=== PATIENT | male | born 1955 | race Caucasian/White ===

== ENCOUNTER → 2020-11-09 03:03 | Outpatient (CLI) | payer OTHER, SELFPAY ==
[2020-11-09 18:36] LABS: SARS-CoV-2 RNA PCR Negative
== END ==
PROVIDERS: PCP Student in an Organized Health Care Education/Training Program; Visit Provider Student in an Organized Health Care Education/Training Program
DX: R68.89 Other general symptoms and signs (principal); Z20.822 Contact with and (suspected) exposure to COVID-19
CPT/HCPCS: C9803; U0003; U0005

== ENCOUNTER → 2021-03-11 12:37 | Outpatient (CLI) | payer OTHER, SELFPAY ==
--- NOTE | ~2021-03-11 | XR_ITS ---
EXAMINATION: XR foot RT standing 2V EXAM DATE: 03/11/2021 13:06 INDICATION: Hallux limitus of right foot. TECHNIQUE: Frontal and lateral projections of the right foot standing. Correlation is made to contra lateral foot same date. FINDINGS: Tiny right calcaneal spur inferiorly. There is mild 1st metatarsophalangeal primary osteoa rthritis. Mild pes planus. There are no bony erosions identified. There are no acute fractures or di slocations identified. There is no subcutaneous gas. The soft tissue is unremarkable. There are n o radiopaque foreign bodies. IMPRESSION: 1. Mild right pes planus. 2. Mild degenerative changes. Reviewed, dictated and finalized at location G. ENT SEWING MACHINE OPERATOR
--- NOTE | ~2021-03-11 | XR_ITS ---
EXAMINATION: XR foot LT standing 2V EXAM DATE: 03/11/2021 13:06 INDICATION: Bilateral foot pain. Left more than right. TECHNIQUE: Frontal and lateral projections of the left foot standing. Correlation is made to contral [facility] foot same date. FINDINGS: There is moderate left 1st metatarsophalangeal joint primary osteoarthritis. There is buni on. Mild pes planus. There are no bony erosions identified. There are no acute fractures or dislocati ons identified. There is no subcutaneous gas. The soft tissue is unremarkable. There are no radio paque foreign bodies. IMPRESSION: 1. Moderate left 1st MTP osteoarthritis. 2. Mild pes planus. 3. Bunion. Reviewed, dictated and finalized at location G. EL TECHNICIAN MECHANIC
== END ==
PROVIDERS: PCP Student in an Organized Health Care Education/Training Program
DX: M19.072 Primary osteoarthritis, left ankle and foot (principal); M21.42 Flat foot [pes planus] (acquired), left foot; M21.41 Flat foot [pes planus] (acquired), right foot; M21.612 Bunion of left foot
CPT/HCPCS: 73620

== ENCOUNTER 2022-11-05 10:55 | Outpatient (CLI) | payer OTHER, SELFPAY ==
--- NOTE | ~2022-11-05 | CT_ITS ---
EXAMINATION: CT abdomen pelvis wo con DATE: 11/05/2022 11:26 INDICATION: Gross hematuria. Nephrolithiasis. TECHNIQUE: Computed tomography (CT) of the abdomen and pelvis was performed without intravenous contr ast. Automated exposure control and iterative reconstruction technique were employed. The dose-length product was 548.37 mGy-cm. COMPARISON: 03/14/2015 FINDINGS: Chronic noncalcified pleural plaque at the posterior right lower lobe. Calcified nodule in the right upper lobe along with calcified right hilar lymph nodes consistent with old granulomatous disease. He art size is normal. No pericardial effusion. Ascending thoracic aortic aneurysm measuring up to 4.4 x 4.3 cm. Liver, gallbladder, pancreas and bilateral adrenal glands are normal. Additional splenic roxana cifications consistent with old granulomatous disease. 1.4 cm low-attenuation cyst at the lower pole of the left kidney. Interval increase in size of a now 3.2 cm exophytic lesion arising from the poste rior interpolar region of the right kidney with greater than simple fluid attenuation. There is incre ased T1 signal on MRI dated 05/18/2014 consistent with a proteinaceous/hemorrhagic cyst. 5 mm nonobstru cting stone at the right ureteropelvic junction with no hydronephrosis. Bilateral ureters are normal in caliber with no additional urolithiasis. There is moderate sigmoid predominant diverticulosis with out adjacent inflammatory change to suggest diverticulitis. Small bowel and appendix are normal. Blad ya is normal. Prostatomegaly. No free intraperitoneal gas or fluid. No pathologically enlarged abdom inal or pelvic lymphadenopathy. L4-S1 anterior spinal fusion with associated fixation devices. Modera te spondylosis in the more cephalad lumbar and lower thoracic spine. Mild osteitis pubis. IMPRESSION: 1. 5 mm nonobstructing stone at the right ureteropelvic junction. 2. 3.2 cm exophytic right renal lesion with greater than simple fluid attenuation. The lesion demonst rating increased T1 signal on a prior number spine MRI most consistent with a proteinaceous/hemorrhag ic cyst but could consider further evaluation with pre and postcontrast CT or MRI for more definitive determination. 3. Diverticulosis. 4. Prostatomegaly. 5. 4.4 cm ascending thoracic aortic aneurysm. Reviewed, dictated and finalized at location A. IMPRESSION: 1. 5 mm nonobstructing stone at the right ureteropelvic junction. 2. 3.2 cm exophytic right renal lesion with greater than simple fluid attenuati on. The lesion demonstrating increased T1 signal on a prior number spine MRI mo st consistent with a proteinaceous/hemorrhagic cyst but could consider further evaluation with pre and postcontrast CT or MRI for more definitive determinatio n. 3. Diverticulosis. 4. Prostatomegaly. 5. 4.4 cm ascending thoracic aortic aneurysm.
== END 2022-11-05 10:56 | disposition home or self-care (01) ==
LOC: ANHIMG 11:02
PROVIDERS: PCP Student in an Organized Health Care Education/Training Program; Visit Provider Student in an Organized Health Care Education/Training Program
DX: R31.0 Gross hematuria (principal); N18.31 Chronic kidney disease, stage 3a; N20.0 Calculus of kidney; K57.30 Diverticulosis of large intestine without perforation or abscess without bleeding; I71.20 Thoracic aortic aneurysm, without rupture, unspecified
CPT/HCPCS: 74176

== ENCOUNTER 2022-12-02 08:29 | Outpatient (CLI) | payer OTHER, SELFPAY ==
--- NOTE | ~2022-12-02 | MR_ITS ---
EXAMINATION: MR abdomen wo/w con DATE: 12/02/2022 09:38 INDICATION: Right renal cyst with gross hematuria. TECHNIQUE: Magnetic resonance imaging (MRI) of the abdomen was performed without intravenous contrast . Sequences included coronal T2-weighted SS-FSE, coronal and axial FS 2D-FIESTA, axial STIR FSE, axi al T2-weighted SS-FSE, axial T2-weighted FS SS-FSE, axial diffusion-weighted SE, axial dual-echo T1-w eighted FSPGR, and axial and coronal T1-weighted LAVA. Postcontrast axial T1-weighted LAVA images wer e obtained in a time course. Postcontrast coronal T1-weighted LAVA images were obtained. COMPARISON: CT dated 11/05/2022 FINDINGS: Heart size is normal. No pericardial or pleural effusion. Again seen is nodular pleural thickening at the posterior aspect of the right lower lobe which appears unchanged since CT dated 03/14/2015 and giv en the absence of appreciable contrast enhancement would favor a pleural plaque over schwannoma or pe ripheral nerve sheath tumor. Liver, gallbladder, spleen, pancreas and bilateral adrenal glands are no rmal. Typical appearing 1.8 cm T2 hyperintense nonenhancing cyst at the lower pole of the left kidney . 3.5 cm complex exophytic proteinaceous/hemorrhagic cyst at the lower pole the right kidney which is both T1 and T2 hyperintense and without enhancement on postcontrast imaging. Visualized portion of t he bowels are unremarkable. Moderate lumbar spondylosis with multilevel disc bulges results in severe central canal stenosis at L2-L3 characterized by lax undulating appearance to the nerve roots cephal ad to the stenosis and possible linear appearance caudal to the stenosis. Metallic magnetic field art ifact associated with a fusion device for anterior spinal fusion at L4-L5 and L5-S1. IMPRESSION: 1. Bilateral renal cysts including a 3.5 cm nonenhancing proteinaceous/hemorrhagic cyst at the lower pole of the right kidney corresponding to the indeterminate lesion of concern on prior CT. 2. Moderate lumbar spondylosis with disc bulges resulting in severe central canal stenosis at L2-L3. Reviewed, dictated and finalized at location A. IMPRESSION: 1. Bilateral renal cysts including a 3.5 cm nonenhancing proteinaceous/hemorrha gic cyst at the lower pole of the right kidney corresponding to the indetermina te lesion of concern on prior CT. 2. Moderate lumbar spondylosis with disc bulges resulting in severe central can al stenosis at L2-L3.
== END 2022-12-02 08:30 | disposition home or self-care (01) ==
PROVIDERS: PCP Student in an Organized Health Care Education/Training Program; Visit Provider Student in an Organized Health Care Education/Training Program
DX: N28.1 Cyst of kidney, acquired (principal); M47.896 Other spondylosis, lumbar region
CPT/HCPCS: 74183; A9577

== ENCOUNTER → 2022-12-12 11:14 | Outpatient (CLI) | payer OTHER, SELFPAY ==
--- NOTE | ~2022-12-12 | CT_ITS ---
EXAMINATION: CT abdomen pelvis wo con DATE: 12/12/2022 11:27 INDICATION: Right ureteral calculus TECHNIQUE: Computed tomography (CT) of the abdomen and pelvis was performed without intravenous contr ast. Automated exposure control and iterative reconstruction technique were employed. Exam dose: 508 .45 mGy-cm total exam DLP. COMPARISON: 11/28/2022 MR abdomen 11/05/2022 CT abdomen pelvis FINDINGS: Minimal discoid atelectasis or scarring in the lower lung zones. Heart size is within keegan l limits. No pericardial or pleural effusion. Small sliding hiatal hernia. The gallbladder appears unremarkable. No bile duct or pancreatic duct dilatation. Hepatic and splenic calcified granulomas consistent with old granulomatous disease. No hepatic, splenic, pancreatic or a drenal space-occupying mass lesion. Again noted is a prominent posterior right renal exophytic proteinaceous or hemorrhagic cyst. Approxi mately 1.4 cm lower pole left renal cyst. Prostate enlargement and calcifications. Urinary bladder is unremarkable. Mild abdominal aortic and iliac arterial calcification; no abdominal aortic aneurysm. No intraperiton eal or retroperitoneal or pelvic mass lesion or adenopathy or ascites. Normal appendix. Diverticulosis of the left colon; no CT evidence of diverticulitis. No bowel obstruc tion, bowel wall thickening, pneumatosis or intraperitoneal free air. Small fat-containing left inguinal hernia and small fat-containing umbilical hernia. Nonobstructing dependent approximately 3 x 8 mm calculus in the right renal pelvis, without obstructi on or hydronephrosis. Status post anterior fusion at L4-S1. IMPRESSION: Nonobstructing right renal pelvic calculus Bilateral renal cysts Sigmoid and descending colon diverticulosis; no evidence of diverticulitis Prostatomegaly, prostate calcifications Reviewed, dictated and finalized at Location A. Reviewed, dictated and finalized at location B.
== END ==
PROVIDERS: PCP Urology; Visit Provider Urology
DX: N20.1 Calculus of ureter (principal); N28.1 Cyst of kidney, acquired; K57.30 Diverticulosis of large intestine without perforation or abscess without bleeding; N40.0 Benign prostatic hyperplasia without lower urinary tract symptoms
CPT/HCPCS: 74176

== ENCOUNTER 2023-09-18 12:22 | Outpatient (CLI) | payer OTHER, SELFPAY ==
--- NOTE | ~2023-09-18 | CT_ITS ---
Non-contrast CT scan of the Abdomen and Pelvis Clinical indication: Right kidney stone Technique: 2.5 mm axial scans were obtained through the abdomen and pelvis without intravenous or or al contrast. Dose reduction technique was used on this scan by utilizing automated exposure control a nd iterative reconstruction technique. The dose-length product (DLP) was 271.20 mGy-cm. COMPARISON: 12/12/2022 Findings: Images through the lung bases reveal no abnormalities. 9 mm ovoid right renal stone present. Right ureteral stent in place. No left renal or left ureteral s tone. No significant hydronephrosis. The liver, spleen, pancreas, gallbladder, and adrenals appear normal. There is mild atherosclerotic change of aorta. There is no evidence of bowel obstruction. Images through the pelvis were performed. There is no evidence of ascites or lymphadenopathy. Urinary bladder unremarkable aside from the stent present. Prostate gland enlarged. No ascites. Impression: 9 mm ovoid stone at the right renal pelvis. Right ureteral stent present. No hydronephrosis or ureteral stone. Reviewed, dictated and finalized at [facility]. Impression: 9 mm ovoid stone at the right renal pelvis. Right ureteral stent present. No hydronephrosis or ureteral stone.
--- NOTE | ~2023-09-18 | US_ITS ---
EXAMINATION:US venous doppler LE RT INDICATION:Right lower extremity edema TECHNIQUE: Multiple grayscale, color flow and Doppler images of the right lower extremity deep venous systems were obtained and reviewed. COMPARISON:No prior studies for comparison. FINDINGS: The common femoral, superficial femoral and popliteal veins demonstrate normal respiratory variation, augmentation and compressibility. Color flow is also seen within the posterior tibial, pe roneal, greater saphenous and profunda veins. IMPRESSION: 1: No lower extremity deep venous thrombosis. Reviewed, dictated and finalized at location B.
== END 2023-09-18 12:23 | disposition home or self-care (01) ==
LOC: ANHIMG 12:23
PROVIDERS: PCP Urology; Visit Provider Student in an Organized Health Care Education/Training Program
DX: M79.604 Pain in right leg (principal); M79.89 Other specified soft tissue disorders
CPT/HCPCS: 74176; 93971

== ENCOUNTER 2024-01-04 11:35 | Outpatient (CLI) | payer OTHER, SELFPAY ==
--- NOTE | ~2024-01-04 | US_ITS ---
TESTICULAR ULTRASOUND (Doppler ultrasound interrogation techniques used as needed for this exam.) Ordering provider: Mono Soto MD History: . Orchitis . Comparison: None. FINDINGS: TESTICLES: Normal in size. The right measures 3.8x 1.8x 3 cm and the left measures 3.7x 2.6x 3.3 cm. Normal echogenicity bilaterally without mass lesion. Normal Doppler flow bilaterally. EPIDIDYMIDES: Normal in size. The right measures 0.6 x 1 cm and the left 0.7 x 1.1 cm. Normal echogen icity bilaterally. Both demonstrate normal Doppler flow. HYDROCELE: Small is seen on the left side. VARICOCELE: None. OTHER ABNORMALITY: None seen. IMPRESSION: Small left hydrocele. Otherwise, normal testicular ultrasound. Reviewed, dictated and finalized at location A. DDED FILLER HOPPER FEEDER
== END 2024-01-04 11:36 | disposition home or self-care (01) ==
LOC: MICIMG 11:35
PROVIDERS: PCP Urology; Visit Provider Urology
DX: N45.2 Orchitis (principal)
CPT/HCPCS: 76870; 93976

== ENCOUNTER 2024-05-12 13:06 | Outpatient (CLI) | payer OTHER, SELFPAY ==
--- NOTE | ~2024-05-12 | XR_ITS ---
XR abdomen/kub 1V 05/12/2024 13:30 Indication: Right kidney stone Procedure: KUB Comparison: CT dated 09/18/2023 Findings: Bowel gas pattern is nonobstructive. No renal stones are identified. There are pelvic phleb oliths. There are surgical changes consistent with fusion at L4-5 and L5-S1. Moderate lower thoracic spondylosis. No acute osseous abnormality. Impression: 1: No acute abdominal abnormality. Reviewed, dictated and finalized at location A. Impression: 1: No acute abdominal abnormality.
--- OUTSIDE RECORDS SUMMARY | 2024-05-12 13:24 | XMS_ITS | Continuity of Care Document ---
Author Organization [facility] Address [address] [place] [address] Phone Care Team Providers Care Dining Server Name Role Phone Pimentel OD, Rafal Unavailable Unavailable Advance Directives Directive Yes / No Effective Date File Name No Information Encounters Encounter Description Practice Location Reason(s) For Visit Diagnoses Date Provider Providers Copied on Encounter [facility], [address], [place], [place], [address], [place] tel:[phone] [facility] No Information Sep-2 2-200 0 Pimentel OD Rafal. [address] , [address], [place], [address], [place]. tel:[phone] Family History Family Member Type Diagnosis Age At Onset No Information Payers Payer name Insurance type Covered libertarian ID Authoriza tion(s) No Information Social History [...]
--- OUTSIDE RECORDS SUMMARY | 2024-05-12 13:24 | XMS_ITS | Encounter Summary ---
Author Organization [facility] Address [address] [place] [address] Phone Care Team Providers Care Caustic Liquor Maker Name Role Phone Valente Murphy Primary Care Provide r Rafal Milligan OD Unavailable [phone] Jesus Masters MD Unavailable [phone] Encounter Details Date Type Department Care Team (Late st Contact Info) Description 05/12/2024 Orders Only [facility] Nephrology [address] [facility] [address] 5[address] [place] [address] [place] [address] Dano Garibay MD [address] [place], [place] [id number] Stage 3 chronic kidney disease, unspecified whether stage 3a or 3b CKD (HCC) (Primary Dx); Calculus of kidney; Hypertension, unspecified type; Vitamin D deficiency; Screening for hematuria or proteinuria; Screening for deficiency anemia Social History Tobacco Use Types Packs/Day Years Used Date Smoking Tobacco: Former Pipe 1 1990 Smokeless Tobacco: Never AUDIT-C Answer Date Recorded Frequency of Alcohol Consumption Not on file 12/10/2023 Q2: How many drinks containi ng alcohol do you have on a typical day when you are drinking? Patient does not drink Frequency of Binge Drinking Not on file 11/11 Personal Safety Answer Date Recorded Have you ever been in or are you currently in a harmful physical or emotional relationship or is someone making you feel afraid or unsafe? Denies 12/10/2023 Sex and Gender Information Value Date Recorded Sex Assigned at Not on file Legal Sex Male 6:58 PM [employer] [place] Gender Identity Not on file Sexual Orientation Not on file documented as of this encounter Plan of Treatment Scheduled Orders Name Type Priority Associated Diagnoses Orde r Schedule CBC with auto differential Lab Routine Stage 3 chronic kidney disease, unspecified whether stage 3a or 3b CKD (HCC) Calculus of kidney Hypertension, unspecified type Vitamin D deficiency Screening for hematuria or proteinuria Screening for deficiency anemia Expected: 05/12/2024, Expires: 05/12/2025 Renal function panel Lab Routine Stage 3 chronic kidney disease, unspecified whether stage 3a or 3b CKD (HCC) Calculus of kidney Hypertension, unspecified type Vitamin D deficiency Screening for hematuria or proteinuria Screening for deficiency anemia Expected: 05/12/2024, Expires: 05/12/2025 PTH Lab Routine Stage 3 chronic kidney disease, unspecified whether stage 3a or 3b CKD (HCC) Calculus of kidney Hypertension, unspecified type Vitamin D deficiency Screening for hematuria or proteinuria Screening for deficiency anemia Expected: 05/12/2024, Expires: 05/12/2025 Urinalysis reflex to microscopic and culture Urine, clean voided Microbiology Routine Stage 3 chronic kidney disease, unspecified whether stage 3a or 3b CKD (HCC) Calculus of kidney Hypertension, unspecified type Vitamin D deficiency Screening for hematuria or proteinuria Screening for deficiency anemia Expected: 05/12/2024, Expires: 05/12/2025 Vitamin D 25 hydroxy Lab Routine Stage 3 chronic kidney disease, unspecified whether stage 3a or 3b CKD (HCC) Calculus of kidney Hypertension, unspecified type Vitamin D deficiency Screening for hematuria or proteinuria Screening for deficiency anemia Expected: 05/12/2024, Expires: 05/12/2025 Protein / creatinine ratio, urine, random Lab Routine Stage 3 chronic kidney disease, unspecified whether stage 3a or 3b CKD (HCC) Calculus of kidney Hypertension, unspecified type Vitamin D deficiency Screening for hematuria or proteinuria Screening for deficiency anemia Expected: 05/12/2024, Expires: 05/12/2025 documented as of this encounter Visit Diagnoses Diagnosis Stage 3 chronic kidney disease, unspecified whether stage 3a or 3b CKD (HCC)- Primary Calculus of kidney Hypertension, unspecified type Vitamin D deficiency Screening for hematuria or proteinuria Screening for unspecified condition Screening for deficiency anemia Screening for other and unspecified deficiency anemia documented in this encounter Care Teams Caustic Liquor Maker Relationship Specialty Start Date End Date Valente Murphy DO [address] [place] [address] PCP - General Family Medicine 01/12/20 Rafal Milligan OD [address] [place] [address] Primary Eye Care Provider Optometry 01/22/20 Jesus Masters MD [address] [place] [address] Referring Physician Otolaryngology 06/10/21 documented as of this encounter
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
--- OUTSIDE RECORDS SUMMARY | 2024-05-12 13:24 | XMS_ITS | Encounter Summary ---
Author Organization [facility] Address [address] [place] [address] Phone Care Team Providers Care Electrical Engineering Technologist Name Role Phone Valente Murphy DO Primary Care Provide r Rafal Milligan OD Unavailable Jesus Masters MD Unavailable [phone] Encounter Details Date Type Department Care Team (Late st Contact Info) Description 03/26/[address] [facility] Ophthalmology [facility] [place] [address] Shelli Chun Social History Tobacco Use Types Packs/Day Years Used Date Smoking Tobacco: Former Cigarettes Q uit: 1990 Sex and Gender Information Value Date Recorded Sex Assigned at Not on file Legal Sex Male 6:58 PM UTILITY AIRCREWMAN Gender Identity Not on file Sexual Orientation Not on file documented as of this encounter Plan of Treatment Not on file documented as of this encounter Visit Diagnoses Not on filedocumented in this encounter Care Teams Electrical Engineering Technologist Relationship Specialty Start Date End Date Valente Murphy DO [address] [place] [address] PCP - General Family Medicine 01/12/20 Rafal Milligan, OD [facility] [place] [address] Primary Eye Care Provider Optometry 01/22/20 Jesus Masters MD [address] [place] [address] Referring Physician Otolaryngology 06/10/21 documented as of this encounter
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
--- OUTSIDE RECORDS SUMMARY | 2024-05-12 13:24 | XMS_ITS | Continuity of Care Document ---
Author Organization [facility] Address [address] [place] [address] Phone Care Team Providers Care Toy Painter Name Role Phone Jerry Busch MD Unavailable Unavailable Allergies, Adverse Reactions, Alerts Substance Reaction Status Criticality No Known Drug Allergies Other Active No I nformation Advance Directives Directive Yes / No Effective Date File Name No Information Encounters Encounter Description Practice Location Reason(s) For Visit Diagnoses Date Provider Providers Copied on Encounter [facility], [address], [place], [place], [address] , tel: [phone] [facility] No Information 8-200 4 Narayan Edwards. [address] [place] [address], [facility] [address], [place], [place], [address] . tel: [phone] [facility], [address], [place], [place], [address] , [place] tel: [phone] [facility] ELEV BL PRES W/O HYPERTN 3-200 4 Narayan Edwards. [address] [place] [address], [facility] [address], [place], [place], [address] . tel: [phone] [facility], [address], [place], [place], [address] , tel: [phone] [facility] DIZZINESS AND GIDDINESSTENSIO N HEADACHEMALAISE AND FATIGUE NEC 2-200 3 Narayan Edwards. [address] [place] [address], [facility] [address], [place], [place], [address] . tel: [phone] [facility], [address], [place], [place], [address] , [place] tel: [phone] [facility] JOINT PAIN-L/LEG Nov-0 1-200 2 Busch Jerry. [address] [place] [address], [facility] [address], [place], [place], [address] . tel: [phone] [facility], [address], [place], [place], [address] , [place] tel: [phone] Administration PRECORDIAL PAIN May-2 4-200 2 Busch Jerry. [address] [place] [address], [facility] [address], [place], [place], [address] . tel: [phone] [facility], [address], [place], [place], [address] , [place] tel: [phone] [facility] HYPERPOTASSEMIA May-1 7-200 2 Busch Jerry. [address] [place] [address], [facility] [address], [place], [place], [address] . tel: [phone] [facility], [address], [place], [place], [address] , [place] tel:[phone] [facility] HYPERLIPIDEMIA NEC/NOS May-1 0-200 2 Busch Jerry. [address] [place] [address], [facility] [address], [place], [place], [address] . tel: [phone] [facility], [address], [place], [place], [address] , [place] tel: [phone] [facility] CHEST PAIN NEC May-0 6-200 2 Busch Jerry. [address] [place] [address], [facility] [address], [place], [place], [address] . tel: [phone] [facility], [address], [place], [place], [address] , [place] tel: [phone] [facility] JOINT PAIN-FOREARM Mar-0 2-200 1 Busch Jerry. [address] [place] [address], [facility] [address], [facility], [place], [address] . tel: [phone] [facility], [address], [place], [place], [address] , tel: [phone] [facility] IRRITABLE BOWEL SYNDROME Dec-0 1-200 0 Narayan Edwards. [address] [facility] [address], [place], [id number] . tel: [phone] Family History Family Member Type Diagnosis Age At Onset No Information Payers Payer name Insurance type Covered constitution party ID Authoriza tion(s) No Information Social [...]
--- OUTSIDE RECORDS SUMMARY | 2024-05-12 13:24 | XMS_ITS | Clinical Summary ---
Author Organization [facility] Address [address] [place] [place] [address] Care Team Providers Care Demolition Crane Operator Name Role Phone Jimenez Lin MD Unavailable [phone] Valente Murphy DO Primary Care Provider + Source Comments [facility],non-owned Affiliates and Associated Physician Practices is amultiple site organization consisting of ambulatory clinics and hospital sitesin [place], [place], [place] and [place]. This disclosure is being madepursuant to the Care Everywhere program and may not contain all information available regarding this patient. Last updated 17.[facility] [email or web address] Allergies Active Allergy Reactions Criticality Noted Date Comments Oxycodone Itching 02/06/2010 Tramadol Itching 07/04/2014 Medications * Be aware that medications may not be up to date on this document. Alwaysverify current medications with the patient. Medication Sig Dispensed Refills Start Date End Date Status Multiple Vitamin (MULTI VITAMIN DAILY PO)Indications:Radic ulopathy of leg,Lower extremity weakness Take by mouth. Active hydrocodone-acetamin ophen (NORCO) 5-325 MG tablet Take 1-2 Tabs by mouth every 4 hours as needed for Pain. 50 Tab 0 07/04/2014 Active Additional Information Patient not taking.Reported on 05/29/2021 diclofenac sodium EC (VOLTAREN) 75 MG tablet Take 1 Tab by mouth 2 times daily 60 Tab 11 02/26/2015 Active Additional Information Patient not taking.Reported on 05/29/2021 modafinil (PROVIGIL) 200 MG tablet Take 1 Tab by mouth every morning 90 Tab 4 03/12/2015 Active amLODIPine (NORVASC) 5 MG tablet Take 5 mg by mouth once daily Active amLODIPine (NORVASC) 10 MG tablet Take 10 mg by mouth once daily 02/04/2021 Active cyclobenzaprine (FLEXERIL) 5 MG tablet Take 5 mg by mouth 3 times daily as needed FOR MUSCLE SPASM 03/20/2021 Active gabapentin (NEURONTIN) 100 MG capsule TAKE 1 CAPSULE BY MOUTH THREE TIMES DAILY NEEDED 04/17/2021 Active lisinopril (PRINIVIL;ZESTRIL) 5 MG tablet TAKE 1 TABLET BY MOUTH ONCE DAILY DIRECTED 02/04/2021 Active meloxicam (MOBIC) 15 MG tablet Take 15 mg by mouth once daily 01/11/2021 Active [place]-3 Fatty Acids (RA FISH OIL) 1000 MG every morning Active Active Problems Problem Noted Date Diagnosed Date Status post lumbar surgery 03/11/2010 Spinal stenosis, lumbar prerna on, with neurogenic claudication 03/11/2010 Resolved Problems Problem Noted Date Diagnosed Date Resolved Date Spinal stenosis, lumbar prerna on, with neurogenic claudication 02/11/2010 02/26/2010 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 12/12/2009 02/26/2010 Family History Medical History Relation Name Comments Diabetes Father Cancer Mother Relation Name Status Comments Brother 1 Alive Brother 2 Alive Child Alive Father (Age 76) Diabetes Mother Alive Sister 1 Alive Sister 2 Alive Sister 3 Alive Sister 4 Alive Social History Tobacco Use Types Packs/Day Years Used Date Smoking Tobacco: Never Smokeless Tobacco: Never Comments:QUIT 30 YRS AGO Alcohol Use Standard Drinks/Week Comments No 0 (1 standard drink = 0.6 oz pur e alcohol) Sex and Gender Information Value Date Recorded Sex Assigned at Not on file Gender Identity Not on file Sexual Orientation Not on file Last Filed Vital Signs Vital Sign Reading Time Taken Comments Blood Pressure 128/88 08/14/2021 3:34 PM CDT Pulse 75 08/14/2021 3:34 PM CDT Temperature 36.7 C (98.1 F) 08/14/2021 2:39 PM CDT Respiratory Rate 16 08/14/2021 3:34 PM CDT Oxygen Saturation 98% 08/14/2021 3:34 PM CDT Inhaled Oxygen Concentration - - Weight 86.2 kg (190 lb) 08/14/2021 2:39 PM CDT Height 172.7 cm (5' 8 ) 08/14/2021 2:39 PM CDT Body Mass Index 28.89 08/14/2021 2:39 PM CDT Plan of Treatment Health Maintenance Due Date Last Done Comments COLOGUARD (AGES 45-75) - COL ON CA SCREENING 1955 COLON MONITORING 1955 COLONOSCOPY - COLON CA SCREENING 1953 CT COLONOGRAPHY - COLON CA SCREENING 1955 Colorectal Cancer Screening 1955 FIT - COLON CA SCREENING 1953 FLEX SIG - COLON CA SCREENING 1953 LIPID TESTING 1955 MEDICARE AWV 12 MONTHS 1953 HEPATITIS C SCREENING 07/15/1971 DTAP/TDAP/TD VACCINES (1 - Tdap) 1972 PNEUMOCOCCAL VACCINE 50+ (1 of 1 - PCV) 07/20/2003 ZOSTER VACCINE (1 of 2) 07/20/2003 SCREENING FOR DIABETES 08/14/2021 02/26/2010 COVID-19 VACCINE (3 - 2023-2 5 season) 2023 04/19/2020, 03/21/2020 DEPRESSION SCREENING 02/10/2024 MEDICARE AWV CALENDAR YEAR 2024 INFLUENZA VACCINE (Season Ended) 2024 11/16/2018, 12/08/2017, 11/25/2016 Respiratory Syncytial Virus (RSV) Vaccine Pt: or over 60 yrs (1 - 1-dose 75+ series) 2028 HEPATITIS B VACCINE Aged Out No longe r eligible based on patient's age to complete this topic HIB VACCINE Aged Out No longer eligi ble based on patient's age to complete this topic HPV VACCINE Aged Out No longer eligi ble based on patient's age to complete this topic MENINGOCOCCAL (Group B) VACCINE SHARED DECISION-MAKING Aged Out No longer eligible based on patient's age to complete this topic MENINGOCOCCAL GROUPS A/C/Y/W VACCINE Aged Out No longer eligible b ased on patient's age to complete this topic Procedures Procedure Name Priority Date/Time Associated Diagnosis Comments GLUCOSE - POINT OF CARE Routine 02/26/2010 10:46 AM FOREIGN LEGAL CONSULTANT from Last 3 Months or Most Recently Relevant to Health Maintenance Results * GLUCOSE - POINT OF CARE (02/26/2010 10:46 AM FOREIGN LEGAL CONSULTANT) Glucose WB/POC 93 70 - 110 mg/dl [facility] BLOOD SPECIMEN / Unknown 02/26/2010 10:46 AM FOREIGN LEGAL CONSULTANT 02/27/2010 5:09 AM FOREIGN LEGAL CONSULTANT Jah Rose MD LAB - POINT OF CARE ORDERABLES [facility] [address] [place] [address] from Last 3 Months or Most Recently Relevant to Health Maintenance Advance Directives Documents on File Type Date Recorded Patient Claim Auditor Expl anation Adv Directive/Living Will/POA 02/28/2010 9:18 AM Adv Directive/Living Will/POA 02/07/2010 2:19 PM * Full Code (Latest Code Status on File) Date Activated Date Inactivated Comments 07/04/2014 9:00 PM 07/05/2014 4:07 AM * Full Code Date Activated Date Inactivated Comments 02/26/2010 5:21 PM 02/27/2010 11:09 PM Care Teams Demolition Crane Operator Relationship Specialty Start Date End Date Valente Murphy DO [address] [place] [id number] PCP - General Family Medicine Geriatric Medicine 04/29/21 Jimenez Lin MD [address] [id number] Internal Medicine 12/12/09
== END 2024-05-12 13:07 | disposition home or self-care (01) ==
PROVIDERS: PCP Student in an Organized Health Care Education/Training Program; Visit Provider Urology
DX: N20.0 Calculus of kidney (principal)
CPT/HCPCS: 74018

== ENCOUNTER 2024-11-01 08:28 | Outpatient (CLI) | payer OTHER, SELFPAY ==
--- OUTSIDE RECORDS SUMMARY | 1999-11-01 10:45 | XMS_ITS | Continuity of Care Document ---
Author Organization [facility] Address [address] [place] [address] Phone Care Team Providers Care Recycling Program Manager Name Role Phone Pimentel OD, Rafal Unavailable Unavailable Advance Directives Directive Yes / No Effective Date File Name No Information Encounters Encounter Description Practice Location Reason(s) For Visit Diagnoses Date Provider Providers Copied on Encounter [facility], [address], [place], [place], [address], [place] tel:[phone] [facility] No Information Sep-2 2-200 0 Pimentel OD Rafal. [address] , [address], [place], [address], [place]. tel:[phone] Family History Family Member Type Diagnosis Age At Onset No Information Payers Payer name Insurance type Covered green party ID Authoriza tion(s) No Information Social History Type Description Quantity Date Captured Comments Sex Male Smoking Status No Information Chief Complaint And Reason For Visit No Information Reason For Referral Reason For Referral No Information History Of Present Illness Encounter Date Complaint History Of Prese nt Illness No Information Functional Status Date Functional Assessmen t No Information Instructions Date Instruction Additional Infor mation No Information Assessments Type Assessment Date No Information Patient Care Teams Name Effective Dates (start - stop) Status Members No Information
--- OUTSIDE RECORDS SUMMARY | 2003-04-16 19:00 | XMS_ITS | Continuity of Care Document ---
Author Organization [email or web address] Address [address] [place] [address] Phone Care Team Providers Care Shampooer Name Role Phone Jerry Busch MD Unavailable Unavailable Allergies, Adverse Reactions, Alerts Substance Reaction Status Criticality No Known Drug Allergies Other Active No I nformation Advance Directives Directive Yes / No Effective Date File Name No Information Encounters Encounter Description Practice Location Reason(s) For Visit Diagnoses Date Provider Providers Copied on Encounter [facility], [address], [place], [place], [address] , tel: [phone] [facility] No Information 8-200 4 Narayan Edwards. [address] [place] [address], [facility] [address], [place], [place], [address] . tel: [phone] [facility], [address], [place], [place], [address] , tel: [phone] [facility] ELEV BL PRES W/O HYPERTN 3-200 4 Narayan Edwards. [address] [place] [address], [facility] [address], [place], [place], [address] . tel: [phone] [facility], [address], [place], [place], [address] , tel: [phone] [facility] DIZZINESS AND GIDDINESSTENSIO N HEADACHEMALAISE AND FATIGUE NEC 2-200 3 Narayan Edwards. [address] [place] [address], [facility] [address], [place], [place], [address] . tel: [phone] [facility], [address], [place], [place], [address] , [place] tel: [phone] [facility] JOINT PAIN-L/LEG Nov-0 1-200 2 Busch Jerry. [address] [place] [address], [facility] [address], [place], [place], [address] . tel: [phone] [facility], [address], [place], [place], [address] , [place] tel: [phone] [facility] PRECORDIAL PAIN May-2 4-200 2 Busch Jerry. [address] [place] [address], [facility] [address], [place], [place], [address] . tel: [phone] [facility], [address], [place], [place], [address] , [place] tel: [phone] [facility] HYPERPOTASSEMIA May-1 7-200 2 Busch Jerry. [address] [place] [address], [facility] [address], [place], [place], [address] . tel: [phone] [email or web address], [address], [place], [place], [address] , [place] tel:[phone] [facility] HYPERLIPIDEMIA NEC/NOS May-1 0-200 2 Busch Jerry. [address] [place] [address], [facility] [address], [place], [place], [address] . tel: [phone] [facility], [address], [place], [place], [address] , [place] tel: [phone] [facility] CHEST PAIN NEC May-0 6-200 2 Busch Jerry. [address] [place] [address], [facility] [address], [place], [place], [address] . tel: [phone] [email or web address], [address], [place], [place], [address] , [place] tel: [phone] [facility] JOINT PAIN-FOREARM Mar-0 2-200 1 Busch Jerry. [address] [place] [address], [facility] [address], [facility], [address] . tel: [phone] [email or web address], [address], [place], [place], [address] , tel: [phone] [facility] IRRITABLE BOWEL SYNDROME Dec-0 1-200 0 Narayan Edwards. [address] [facility] [address], [place], [address] . tel: [phone] Family History Family Member Type Diagnosis Age At Onset No Information Payers Payer name Insurance type Covered democrat ID Authoriza tion(s) No Information Social History [...]
--- NOTE | ~2024-11-01 | XR_ITS ---
XR abdomen/kub 1V 11/01/2024 08:50 INDICATION: Right kidney stone TECHNIQUE: KUB COMPARISON: 05/12/2024 FINDINGS: Bowel gas pattern is normal. There is no evidence of free air, mass, organomegaly, ascites or obstruction. There is a punctate stone in the lower pole of the right kidney. The bones appear intact. IMPRESSION: 1: Right nephrolithiasis.. Reviewed, dictated and finalized at location O. IMPRESSION: 1: Right nephrolithiasis..
--- OUTSIDE RECORDS SUMMARY | 2024-11-01 08:48 | XMS_ITS | Encounter Summary ---
Author Organization [facility] Address [address] [place] [address] Phone Care Team Providers Care Event Organizer Name Role Phone Valente Murphy DO Primary Care Provide r Rafal Milligan OD Unavailable [phone] Jesus Masters MD Unavailable [phone] Encounter Details Date Type Department Care Team (Late st Contact Info) Description 03/26/2020 Telephone [facility] Medicine Ophthalmology [address] [place] [address] [place] [address] Shelli Chun Social History Tobacco Use Types Packs/Day Years Used Date Smoking Tobacco: Former Cigarettes Q uit: 1990 Sex and Gender Information Value Date Recorded Sex Assigned at Not on file Legal Sex Male 6:58 PM MEDICAL ASSISTING PROGRAM DIRECTOR Gender Identity Not on file Sexual Orientation Not on file documented as of this encounter Plan of Treatment Not on file documented as of this encounter Visit Diagnoses Not on filedocumented in this encounter Care Teams Event Organizer Relationship Specialty Start Date End Date Valente Murphy DO [address] [place] [address] PCP - General Family Medicine 01/12/20 Rafal Milligan, OD [facility] [place], [place] [id number] Primary Eye Care Provider Optometry 01/22/20 Jesus Masters MD [address] [place] [address] Referring Physician Otolaryngology 06/10/21 documented as of this encounter
--- OUTSIDE RECORDS SUMMARY | 2024-11-01 08:48 | XMS_ITS | Clinical Summary ---
Author Organization [facility] Address [address] [facility] [place] [address] Care Team Providers Care Three Dimensional Art Instructor Name Role Phone Jimenez Lin MD Unavailable [phone] Valente Murphy DO Primary Care Provider + Source Comments [facility],non-owned Affiliates and Associated Physician Practices is amultiple site organization consisting of ambulatory clinics and hospital sitesin [place], [place], [place] and [place]. This disclosure is being madepursuant to the Care Everywhere program and may not contain all information available regarding this patient. Last updated 17.[facility] [employer] Allergies Active Allergy Reactions Criticality Noted Date Comments Oxycodone Itching 02/06/2010 Tramadol Itching 07/04/2014 Medications * Be aware that medications may not be up to date on this document. Alwaysverify current medications with the patient. Multiple Vitamin (MULTI VITAMIN DAILY PO)Indications: Radiculopathy of leg,Lower extremity weakness Take by mouth. Activ e hydrocodone-brandon taminophen (NORCO) 5-325 MG tablet Take 1-2 Tabs by mouth every 4 hours as needed for Pain. 50 Tab 0 5 Active Additional Information Patient not taking.Reported on 05/29/2021 diclofenac sodium EC (VOLTAREN) 75 MG tablet Take 1 Tab by mouth 2 times daily 60 Tab 11 6 Active Additional Information Patient not taking.Reported on 05/29/2021 modafinil (PROVIGIL) 200 MG tablet Take 1 Tab by mouth every morning 90 Tab 4 6 Active amLODIPine (NORVASC) 5 MG tablet Take 5 mg by mouth once daily Active amLODIPine (NORVASC) 10 MG tablet Take 10 mg by mouth once daily 1 Active cyclobenzaprine (FLEXERIL) 5 MG tablet Take 5 mg by mouth 3 times daily as needed FOR MUSCLE SPASM 2 Active gabapentin (NEURONTIN) 100 MG capsule TAKE 1 CAPSULE BY MOUTH THREE TIMES DAILY NEEDED 2 Active lisinopril (PRINIVIL;ZESTR [place]) 5 MG tablet TAKE 1 TABLET BY MOUTH ONCE DAILY DIRECTED 1 Active meloxicam (MOBIC) 15 MG tablet Take 15 mg by mouth once daily 1 Active [place]-3 Fatty Acids (RA FISH OIL) 1000 MG every morning Act branden Active Problems Problem Noted Date Diagnosed Date [...] at Not on file Legal Sex Male 9:44 AM CULTURE MANAGER Gender Identity Not on file Sexual Orientation Not on file 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 Not on file Not on file Last Filed Vital Signs [...] 2:39 PM CDT Height 172.7 cm (5' 8) 08/14/2021 2:39 PM CDT Body Mass Index [...] COLON CA SCREENING 1953 LIPID TESTING 1953 HEPATITIS C SCREENING 07/15/1971 DTAP/TDAP/TD VACCINES (1 - Tdap) 1972 PNEUMOCOCCAL VACCINE 50+ (1 of 1 - PCV) 07/20/2003 ZOSTER VACCINE (1 of 2) 07/20/2003 SCREENING FOR DIABETES 08/14/2021 02/26/2010 DEPRESSION SCREENING 02/10/2024 COVID-19 VACCINE (3 - 2024-2 6 season) 2024 04/19/2020, 03/21/2020 INFLUENZA VACCINE (#1) 2024 9, 12/08/2017, 11/25/2016 Respiratory Syncytial Virus (RSV) Vaccine [...] POINT OF CARE Routine 02/26/2010 10:46 AM CULTURE MANAGER from Last 3 Months or Most Recently Relevant to Health Maintenance Results * GLUCOSE - POINT OF CARE (02/26/2010 10:46 AM CULTURE MANAGER) Glucose WB/POC 93 70 - 110 mg/dl [facility] BLOOD SPECIMEN / Unknown 02/26/2010 10:46 AM CULTURE MANAGER 02/27/2010 5:09 AM CULTURE MANAGER us Jah Rose MD LAB - POINT OF CARE ORDERABL ES Final Result [facility] [address] [place] [address] from Last 3 Months or Most Recently Relevant to Health Maintenance Insurance MEDICARE * Guarantor: OTONIEL JOHNSON Account Type Relation to Patient Date of Phone Billing Address Personal/Family [address] [place] [address] Advance Directives Documents on File Type Date Recorded Patient Monologist Expl anation Adv Directive/Living Will/POA 02/28/2010 9:18 AM Adv Directive/Living Will/POA 02/07/2010 2:19 PM * Full Code (Latest Code Status on File) Date Activated Date Inactivated Comments 07/04/2014 9:00 PM 07/05/2014 4:07 AM * Full Code Date Activated Date Inactivated Comments 02/26/2010 5:21 PM 02/27/2010 11:09 PM Care Teams Three Dimensional Art Instructor Relationship Specialty Start Date End Date Valente Murphy DO [address] [place] [address] PCP - General Family Medicine Geriatric Medicine 04/29/21 Jimenez Lin MD [address] [phone] Internal Medicine 12/12/09
--- OUTSIDE RECORDS SUMMARY | 2024-11-01 08:48 | XMS_ITS | Clinical Summary ---
Author Organization [facility] Address [address] [place] [address] Care Team Providers Care Laborer Name Role Phone Valente Murphy Primary Care Provide r Rafal Milligan OD Unavailable [phone] Jesus Masters MD Unavailable [phone] Allergies Active Allergy Reactions Criticality Noted Date Comments Oxycodone Itching Low 02/06/2010 Tramadol Itching Low 07/04/2014 Medications multivitamin tabletIndicatio ns:Vitamin Deficiency Prevention Take by mouth every morning Active amLODIPine (NORVASC) 10 mg tablet every morning 01/24/2018 Activ e omega 1-bfz-sbh-fish oil 100-160-1,000 mg capsule every morning Activ e polycarbophil (FIBERCON) 625 mg tabletIndicatio ns:constipation Take [...] mg total) by mouth daily 06/25/2023 Active colchicine (COLCRYS) 0.6 mg tablet Take 1 tablet BID. If having an acute flare: Day 1: 1.2 mg at the first sign of flare, followed by 0.6 mg after 1 hour. 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 Monitor. 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 Assessment & Plan (11/07/2021 4:21 PM CDT): monoc precations/polycarb Rx Assessment & Plan (03/24/2021 8:45 AM DOWEL MAKER): Monocular precautions reviewed - polycarbs/realtime court reporter wear Assessment & Plan (06/04/2020 12:53 PM CDT): Limiting vision, stable on exam today Assessment & Plan (03/23/2020 4:24 PM DOWEL MAKER): Stable/chronic Vision limiting OD Assessment & Plan (01/12/2020 12:03 PM DOWEL MAKER): From previous injury mid- Monocular diplopia of left eye 01/12/2020 Assessment & Plan (11/07/2021 4:20 PM CDT): Improved with axis shift - release updated glasses Rx Assessment & Plan (03/24/2021 8:43 AM DOWEL MAKER): Sx improved with axis change - rec [...] treatment Assessment & Plan (03/23/2020 4:24 PM DOWEL MAKER): Follows with Dr. Sanchez May improve with CEIOL, warned it may not change Assessment & Plan (01/12/2020 11:59 AM DOWEL MAKER): Pt reports episodes of diplopia at near. [...] 03/24/2021 Assessment & Plan (03/23/2020 4:24 PM DOWEL MAKER): Referral from Dr. Sanchez for cataract evaluation. Recent binocular diplopia. [place] cataract may be playing a role and [...] done Assessment & Plan (01/12/2020 11:50 AM DOWEL MAKER): Not visually significant. Monitor. UV protection recommended [...] on file Legal Sex Male 6:58 PM DOWEL MAKER Gender Identity Not on file Sexual Orientation Not on file Obstetrics History Last Filed Vital Signs Vital Sign Reading Time Taken Comments Blood Pressure 135/95 05/27/2024 9:55 AM CDT Pulse 89 05/27/2024 9:55 AM CDT Temperature 36.4 C (97.5 F) 05/27/2024 9:55 AM CDT Respiratory Rate 16 12/10/2023 11:35 AM CDT Oxygen Saturation 96% 12/10/2023 11:35 AM CDT Inhaled Oxygen Concentration - - Weight 80.6 kg (177 lb 9.6 oz) 05/27/2024 9:55 A M CDT Height 170.2 cm (5' 7) 05/27/2024 9:55 AM CDT Body Mass Index 27.82 05/27/2024 9:55 AM CDT Plan of Treatment Health Maintenance Due Date Last Done Comments Colon Cancer Screening-Colonoscopy 1955 Depression Screening 1955 Hepatitis C Screening 1955 Hepatitis B Screening 07/20/1971 Zoster Vaccine (1 of 2) 07/20/2003 Well Visit 65+ 2018 Fall Risk Assessment 09/30/2024 10/01/2023, 07/27/19 24 Covid-19 Vaccine (2024-2 6 season) 2024 01/11/2021, 04/19/2020, 03/21/2020 Influenza Vaccine (#1) 2024 0, 11/16/2018, 12/08/2017, Additional history exists DTaP/Tdap/Td Vaccine (2 - Tdap) 12/31/2025 6, 01/01/2016 Pneumococcal vaccine 65+ Completed 11/29/2019, 09/2018 Abdominal Aortic Aneurysm (A AA) Screen Completed 08/17/2023, 06/18/2023 Medical Devices Implanted Type Area Retort Condenser Attendant Device Identifier Shelf Expiration Date Model / Serial / Lot [employer] [id number] - [id number] - [id number] Implanted:Qty: 1 on 05/01/2020 by Latrice Hernádnez MD at [facility] Right: Eye [employer] 12/09/2022 [id number] / [id number] / [employer] Sommer Contour 6fr 26cm Large Inner Lumen Low Profile Bladder Rafal Taper Latex Free 180-223 - [id number] Implanted:Qty: 1 on 10/01/2023 by Mono Soto MD at [facility] Right: Ureter [employer] 06/11/2026 [id number] / / [id number] Explanted Type Area Retort Condenser Attendant Device Identifier Shelf Expiration Date Model / Serial / Lot [employer] Sommer Contour 6fr 26cm Large Inner Lumen Low Profile Bladder Rafal Taper Latex Free 180-223 - [id number] Implanted:Qty: 1 on 09/03/2023 by Mono Soto MD at [facility] Explanted:Qty: 1 on 10/01/2023 by Mono Soto MD at [facility] [employer] Sommer 03/20/2026 [id number] / / [id number] Insurance [facility] Care Teams Laborer Relationship Specialty Start Date End Date Valente Murphy DO [address] [place] [address] PCP - General Family Medicine 01/12/20 Rafal Milligan OD [address] [place] [address] Primary Eye Care Provider Optometry 01/22/20 Jesus Masters MD [address] [place] [address] Referring Physician Otolaryngology 06/10/21
== END 2024-11-01 08:29 | disposition home or self-care (01) ==
PROVIDERS: PCP Student in an Organized Health Care Education/Training Program; Visit Provider Urology
DX: N20.0 Calculus of kidney (principal)
CPT/HCPCS: 74018